=== PATIENT | male | born 1960 | race Caucasian/White ===

== ENCOUNTER 2023-01-20 04:10 | Emergency (ER) | payer SELFPAY ==
[2023-01-20 04:31] VITALS: TEMP 97.6; BMI 33.0
[2023-01-20] MEDS ORDERED: SODIUM CHLORIDE 0.9% 500 ML INFUS.BAG IV ONE (04:44)
[2023-01-20 04:57] LABS: BASO % 0.5 % (0-2.0); EOS % 9.5 % (0-4.5); HEMATOCRIT 47.6 % (35.4-49); HEMOGLOBIN 16.1 GM/dL (11.7-16.9); LYMPH % 32.7 % (8-40); MCH 29.5 pg (25.7-33.7); MCHC 33.8 g/dl (32.0-35.9); MEAN CELL VOLUME 87.5 fl (80-96); MEAN PLT VOLUME 7.2 fl (7.5-11.1); MONO % 9.1 % (3.8-10.2); NEUT % 48.2 % (42.8-82.8); PLATELET COUNT 301 10^3/uL (134-434); RBC 5.44 M/mm3 (4.00-5.60); RDW 13.7 % (11.9-15.9); WHITE BLOOD COUNT 7.8 K/mm3 (4.0-10.0)
[2023-01-20 05:21] LABS: INR 1.04 (0.83-1.09); PROTHROMBIN TIME (PATIENT) 12.1 SEC (9.7-13.0)
[2023-01-20 05:23] LABS: ACTIVATED PTT 25.9 SECONDS (25.2-36.5)
[2023-01-20 06:03] LABS: POTASSIUM 4.4 mmol/L (3.5-5.1)
[2023-01-20 06:05] LABS: BLOOD UREA NITROGEN 21.2 mg/dL (7-18); CALCIUM 9.6 mg/dL (8.5-10.1)
[2023-01-20 06:09] LABS: CREATININE 1.4 mg/dL (0.55-1.3)
[2023-01-20 06:11] LABS: BILIRUBIN,TOTAL 0.5 mg/dL (0.2-1); TOT PROT 7.4 g/dl (6.4-8.2)
[2023-01-20 06:13] LABS: N-TERMINAL BNP 10.3 pg/ml (5-125)
[2023-01-20 06:17] VITALS: BP 136/79; PULSE 67; RESP 18
== END 2023-01-20 09:08 | disposition left against medical advice (07) ==
LOC: EDBD 04:10 → JER 04:10
DX: R21 Rash and other nonspecific skin eruption (principal); R09.02 Hypoxemia; R55 Syncope and collapse; R61 Generalized hyperhidrosis; R42 Dizziness and giddiness
CPT/HCPCS: 36415; 71045-TC-FY; 71275-TC; 80053; 82962; 83880; 84484; 85025; 85379; 85610; 85730; 86850; 86900; 86901; 93005; 93010; 99285-25; Q9967